=== PATIENT | female | born 1970 | race Caucasian/White ===

== ENCOUNTER 2017-03-30 07:16 | Day surgery (SDC) | payer MEDICARE ==
[~2017-03-30 07:16] MED LIST: ACIPHEX20 M1 PO; AMBIEN10 MG PO; AMBIEN5 M1 PO; ATIVAN1 M2 PO; CELEXA40 M1 PO; DEPAKOTE250 M1 PO; DICLOFENAC POTA50 M1 PO; FLUOXETINE HCL40 M1 PO; FLUOXETINE HCL40 MG; GABAPENTIN100 MG PO; HYDROXYZINE HCL50 M1 PO; LITHIUM CARBON300 M; LITHIUM CARBON300 M PO; LITHIUM CARBON300 M2 PO; LITHIUM CARBON300 PO; NEURONTIN300 M1 PO; NORCO 5-325 TA1 EACH PO; NORTRIPTYLIHNE25 MG; NORTRIPTYLINE H50 M1 PO; NORTRIPTYLINE H50 MG PO; OXAYDO7.5 MG PO; OXYCODONE HCL E10 MG PO; PERCOCET 5/3251 TAB PO; PERCOCET PO; PRISTIQ50 MG PO; RESTORIL15 M1 PO; RESTORIL15 MG PO; RISPERDAL0.25 MG PO; SUBOXONE 12 MG1 EACH; SUBOXONE 12 MG1 EACH SL; TOPAMAX25 M2 PO; TRAZODONE HCL50 M1 PO; TUMS200 MG PO; XANAX0.5 MG PO; XANAX1 M1 PO; [UNRECOGNIZED DRUG - REMARK]
== END 2017-03-30 12:15 ==
LOC: SHSB 07:16 → PACU 10:15 → SHSB 11:15
PROC: 0WQF0ZZ Repair Abdominal Wall, Open Approach (ICD-10-PCS; principal; 2017-03-30)
DX: K42.0 Umbilical hernia with obstruction, without gangrene (principal); F41.9 Anxiety disorder, unspecified; F31.9 Bipolar disorder, unspecified; J45.909 Unspecified asthma, uncomplicated; F17.210 Nicotine dependence, cigarettes, uncomplicated; K21.9 Gastro-esophageal reflux disease without esophagitis; F11.21 Opioid dependence, in remission; F10.21 Alcohol dependence, in remission; F43.10 Post-traumatic stress disorder, unspecified; Z79.899 Other long term (current) drug therapy; Z88.8 Allergy status to other drugs, medicaments and biological substances; Z87.11 Personal history of peptic ulcer disease; Z91.5 Personal history of self-harm; Z90.49 Acquired absence of other specified parts of digestive tract; Z98.890 Other specified postprocedural states
CPT/HCPCS: J0690; J1885; J2250

== ENCOUNTER 2017-05-08 16:09 | Emergency (ER) | payer MEDICARE ==
[2017-05-08] MEDS ORDERED: DEPAKOTE250 M1 PO (16:17)
== END 2017-05-08 17:37 ==
LOC: EDMED 16:09
DX: M79.661 Pain in right lower leg (principal); F31.9 Bipolar disorder, unspecified; Z79.899 Other long term (current) drug therapy; F17.210 Nicotine dependence, cigarettes, uncomplicated; Z90.49 Acquired absence of other specified parts of digestive tract